=== PATIENT | male | born 1980 | race Caucasian/White ===

== ENCOUNTER → 2017-09-15 | Day surgery (SDC) | payer OTHER ==
[~2017-09-15] MED LIST: BENTYL10 MG/1 ML PO; FENTANYL CITRATE/PF 100MCG/2 ML INJ ONE; HYOSCYAMINE SULFATE 0.5 MG/ML AMP ONE; LIDOCAINE HCL 2% LOCAL INJ 5 ML SDV VIAL INJ ONE; MIDAZOLAM HCL 2 MG/2 ML VIAL ONE; PEPCID20 MG PO; PROPOFOL IV EMULSION 10 MG/ML 50 ML VIAL ONE
--- NOTE | 2017-09-15 13:04 | Operative Report ---
DATE OF PROCEDURE: September 15, 2017 PROCEDURES PERFORMED 1. Esophagogastroduodenoscopy with biopsies. 2. Colonoscopy with biopsies. INDICATIONS FOR PROCEDURE: History of heartburn and indigestion. INDICATIONS FOR COLONOSCOPY: Diarrhea. MEDICATION: Patient was done under MAC. Please see anesthesiologist's note. PROCEDURE: With the patient in the left lateral decubitus position, the flexible fiberoptic Olympus gastroscope was introduced into the esophagus under direct visualization without any difficulty. There were some erosions noted in the distal esophagus. A minute nodule was noted at the GE junction that was biopsied. The scope was then advanced with ease into the stomach traversing a small sliding hiatal hernia. Mucosa overlying the antrum and the body revealed some patchy erythema and low-grade to moderate edema, and biopsies were obtained and sent to stain for H. pylori. Pylorus appeared to be of normal contour and shape. It was intubated with ease, and the scope was advanced all the way to the 2nd portion of the duodenum. The scope was then withdrawn slowly, and biopsies were obtained from the proximal 2nd portion to rule out sprue. Mucosa overlying the duodenal bulb appeared to be within normal limits. The scope was then withdrawn back into the stomach and retroflexed. Mucosa overlying the fundus and the cardia appeared to be within normal limits. The scope was then straightened out. The stomach was decompressed. Scope was subsequently withdrawn. Patient tolerated the procedure well. IMPRESSION 1. Erosive esophagitis. 2. Minute nodule at gastroesophageal junction, biopsied. 3. Small sliding hiatal hernia. 4. Gastritis, biopsied. Biopsies sent to stain for H. pylori. 5. Rule out sprue. PLAN: Follow up histology. Initiate Protonix 40 mg 1 p.o. q.a.m. a.c. The patient was then turned around. After adequate lubrication of the anal canal, a flexible fiberoptic Olympus colonoscope was inserted into the rectum with ease and advanced all the way to the cecum. The mucosa overlying the cecum appeared to be within normal limits. The ileocecal valve was intubated, and the scope was advanced into the terminal ileum. The mucosa revealed some patchy erythema and moderate edema, and biopsies were obtained. The scope was then withdrawn back into the colon. It was then withdrawn slowly. Mucosa overlying the ascending and transverse appeared to be within normal limits. The mucosa overlying the left colon revealed some patchy areas of mild to moderate edema, and biopsies were obtained. The scope was then retroflexed into the distal rectum, and small internal hemorrhoids were noted, none of which was actively bleeding. The scope was then straightened out. The rectosigmoid area as well as the distal rectal area were decompressed. Scope was subsequently withdrawn after securing an adequate stool specimen that was sent for the appropriate stool studies. Patient tolerated the procedure well. IMPRESSION 1. Ileitis, biopsied. 2. Mild, patchy, left-sided colitis. 3. Internal hemorrhoids, none actively bleeding. PLAN: Follow up histology. Follow up stool studies. Initiate VSL #3 DS one p.o. daily and Bentyl 10 mg 1 p.o. t.i.d. Timing of followup colonoscopy pending pathology report. Job#: [id number]
[2017-09-15 13:12] LABS: WBC,FECAL (FECAL LACTOFERRIN) NEGATIVE (NEGATIVE)
[2017-09-16 13:46] LABS: C DIFFICILE TOXIN A&B AMP PROB NEGATIVE (NEGATIVE)
== END | disposition home or self-care (01) ==
LOC: OR 09:18
PROVIDERS: ATTEND Internal Medicine Gastroenterology
DX: K29.50 Unspecified chronic gastritis without bleeding (principal); K51.50 Left sided colitis without complications; K21.0 Gastro-esophageal reflux disease with esophagitis; K64.8 Other hemorrhoids; K22.10 Ulcer of esophagus without bleeding; K44.9 Diaphragmatic hernia without obstruction or gangrene; Z68.30 Body mass index [BMI] 30.0-30.9, adult
CPT/HCPCS: 43239; 45380; 83630; 83993; 87045; 87177; 87328; 87493; J1980; J2001; J2250

== ENCOUNTER 2019-10-17 15:30 | Inpatient (IN) | payer OTHER ==
[~2019-10-17] VITALS: Ht 182.9 cm; Wt 108.9 kg
[~2019-10-17 15:30] MED LIST changes: -FENTANYL CITRATE/PF 100MCG/2 ML INJ ONE; -HYOSCYAMINE SULFATE 0.5 MG/ML AMP ONE; -LIDOCAINE HCL 2% LOCAL INJ 5 ML SDV VIAL INJ ONE; -MIDAZOLAM HCL 2 MG/2 ML VIAL ONE; -PROPOFOL IV EMULSION 10 MG/ML 50 ML VIAL ONE
[2019-10-17] MEDS ORDERED: MORPHINE SULFATE INJ 4 MG/ML INJ 1ML IV STA (15:31)
[2019-10-17] MEDS ORDERED: ONDANSETRON HCL INJ 2MG/ML 2ML 2 MG/ML VIAL IV STA ×2 (15:31→17:47)
[2019-10-17] MEDS ORDERED: FAMOTIDINE 20 MG/2 ML VIAL IV STA (15:31)
[2019-10-17] MEDS ORDERED: SODIUM CHLORIDE 0.9% 1000ML 1,000 ML IV STA (15:31)
--- OUTSIDE RECORDS SUMMARY | 2019-10-17 15:33 | XMS REPORT ---
Author Author [facility] Address Unknown Phone Unavailable Care Team Providers Care [employer] Stillman Name Role Phone Unavailable Unavailable Payers Payer Name Policy Type Policy Number Effective Date Expiration Date Problems This patient has no known problems. Allergies, Adverse Reactions, Alerts Allergy Name Allergy Type Status Severity Reaction(s) Onset Date Inactive Date Treating Clinician Comments latex DA Active IN 2019-07-23 00:00:00 latex DA Active IN 2018-12-08 00:00:00 No Known Allergies DA Active U 2018-11-08 00:00:00 No Known Allergies DA Active U 2017-08-03 00:00:00 Medications This patient has no known medications. Results Test Description Test Time Test Comments Text Results Atomic Results Result Comments TROPONIN-I 2019-07-23 17:54:00 TROPONIN-I (test code=TROPI) <0.015 ng/mL 0-0.045 - CT ABD PELVIS [id number] 16:31:00 Name: HAL FRENCH [facility] : 1980 Age/S: 38 / M [address] [facility] Unit #: [id number] Loc: [place] [address] Phys: Michelle Zamora MD Acct: [id number] Dis Date: Status: REG ER PHONE #: [phone] Exam Date: 07/23/2019 1543 FAX #: [phone] Reason: LUQ PAIN, N/V EXAMS: CPT CODE: [id number] CT ABD PELVIS W/CONT [id number] EXAM: CT of the abdomen and pelvis with contrast; INFORMATION: Abdominal pain, nausea and vomiting; TECHNIQUE AND FINDINGS: CT dose reduction protocol; 5 mm cuts through the abdomen and pelvis during and after intravenous infusion of contrast material. Compared with a study from November 08, 2018 previously seen partial small bowel obstruction has resolved. Today small bowel loops and the colon and of normal caliber. However, again seen is circumferential wall thickening of a short segment of the terminal ileum, consistent with Crohn's disease. No evidence of abscess formation or other inflammatory changes of the adjacent mesenteric structures. Liver, biliary system, pancreas, spleen, adrenal glands and kidneys are unremarkable. No hydronephrosis. No pelvic mass lesions. Lung bases are clear. IMPRESSION: 1. Thick-walled segment of the terminal ileum consistent with Crohn's disease. 2. No evidence of abscess formation, perforation or bowel obstruction and no evidence of inflammatory changes of adjacent mesenteric structures. Location code: [facility] at 1631 Reported and signed by: Diego Dick M.D. CC: Lisandro Vernon III, MD; Michelle Zamora MD Technologist:Ramy Quevedo RT(R) CTDI: DLP: Trnscb Date/Time: 07/23/2019 (163) tBRADLEY Orig Print D/T: S: 07/23/2019 (9611) PAGE 1 Signed Report URINALYSIS [id number] 16:06:00* Test Item Value Reference Range Comments UA COLOR (test code=COLU) Light-Yellow YELLOW UA APPEARANCE (test code=APPU) CLEAR CLEAR UA GLUCOSE DIPSTICK (test code=DGLUU) NEGATIVE mg/dL NEGATIVE UA BILIRUBIN DIPSTICK (test code=BILU) NEGATIVE mg/dL NEGATIVE UA KETONE DIPSTICK (test code=KETU) NEGATIVE mg/dL NEGATIVE UA SPECIFIC GRAVITY (test code=SGU) 1.047 1.001-1.035 UA BLOOD DIPSTICK (test code=REJI) Negative mg/dL NEGATIVE UA PH DIPSTICK (test code=DORETHA) 7.0 5.0-8.0 UA PROTEIN DIPSTICK (test code=PROU) NEGATIVE mg/dL NEGATIVE UA UROBILINIOGEN DIPSTICK (test code=URO) Normal mg/dL NEGATIVE UA NITRITE DIPSTICK (test code=EMERSON) NEGATIVE NEGATIVE UA LEUKOCYTE ESTERASE W REFLEX (test code=LEUUR) NEGATIVE Cesar/uL NEGATIVE UA WBC (test code=WBCU) 0-5 per HPF 0-5 UA RBC (test code=RBCU) 0-2 #/HPF 0-5 UA EPITHELIAL CELLS (test code=EPIU) None seen per HPF FEW UA BACTERIA (test code=BACU) NONE SEEN #/HPF NONE Urine Source? Clean CatchBASIC METABOLIC [id number] 14:40:00* Test Item Value Reference Range Comments SODIUM (test code=NA) 139 mmol/L 136-145 POTASSIUM (test code=K) 3.8 mmol/L 3.5-5.1 CHLORIDE (test code=CL) 104.0 mmol/L 98-107 CARBON DIOXIDE (test code=CO2) 30.0 mmol/L 21-32 ANION GAP (test code=GAP) 8.8 10-20 GLUCOSE (test code=GLU) 89 mg/dL 74-106 BLOOD UREA NITROGEN (test code=BUN) 14 mg/dL 7-18 GLOMERULAR FILTRATION RATE (test code=GFR) > 60 mL/min >=60 Estimated GFR by using Modified MDRD formula.Chronic kidney disease is defined as either kidney damageor GFR <60 mL/min/1.73 m2 for >3 months. CREATININE (test code=CREAT) 1.00 mg/dL 0.7-1.3 BUN/CREATININE RATIO (test code=BUN/CREA) 14.0 10-20 CALCIUM (test code=CA) 9.4 mg/dL 8.5-10.1 HEPATIC FUNCTION [id number] 14:40:00* Test Item Value Reference Range Comments TOTAL PROTEIN (test code=PROT) 8.0 gram/dL 6.4-8.2 ALBUMIN (test code=ALB) 4.2 g/dL 3.4-5.0 GLOBULIN (test code=GLOB) 3.8 gram/dL 2.7-4.2 ALBUMIN/GLOBULIN RATIO (test code=A/G) 1.1 0.75-1.50 BILIRUBIN TOTAL (test code=BILT) 0.40 mg/dL 0.0-1.0 BILIRUBIN DIRECT (test code=BILD) 0.11 mg/dL 0.0-0.20 SGOT/AST (test code=AST) 28 IUnit/L 15-37 SGPT/ALT (test code=ALT) 39 IUnit/L 12-78 ALKALINE PHOSPHATASE TOTAL (test code=ALKP) 60 IUnit/L 45-117 Note change in reference range due to change in reagent. [id number] 14:40:00* Test Item Value Reference Range Comments LIPASE (test code=LIP) 97 U/L 73.0-393.0 BASIC METABOLIC [id number] 14:36:00* Test Item Value Reference Range Comments SODIUM (test code=NA) 139 mmol/L 136-145 POTASSIUM (test code=K) 3.8 mmol/L 3.5-5.1 CHLORIDE (test code=CL) 104.0 mmol/L 98-107 CARBON DIOXIDE (test code=CO2) mmol/L 21-32 ANION GAP (test code=GAP) 10-20 GLUCOSE (test code=GLU) mg/dL 74-106 BLOOD UREA NITROGEN (test code=BUN) mg/dL 7-18 GLOMERULAR FILTRATION RATE (test code=GFR) mL/min >=60 CREATININE (test code=CREAT) mg/dL 0.7-1.3 BUN/CREATININE RATIO (test code=BUN/CREA) 10-20 CALCIUM (test code=CA) mg/dL 8.5-10.1 HEPATIC FUNCTION [id number] 14:36:00* Test Item Value Reference Range Comments TOTAL PROTEIN (test code=PROT) gram/dL 6.4-8.2 ALBUMIN (test code=ALB) g/dL 3.4-5.0 GLOBULIN (test code=GLOB) gram/dL 2.7-4.2 ALBUMIN/GLOBULIN RATIO (test code=A/G) 0.75-1.50 BILIRUBIN TOTAL (test code=BILT) mg/dL 0.0-1.0 BILIRUBIN DIRECT (test code=BILD) mg/dL 0.0-0.20 SGOT/AST (test code=AST) IUnit/L 15-37 SGPT/ALT (test code=ALT) IUnit/L 12-78 ALKALINE PHOSPHATASE TOTAL (test code=ALKP) IUnit/L 45-117 [id number] 14:36:00* Test Item Value Reference Range Comments LIPASE (test code=LIP) U/L 73.0-393.0 CBC W/O [id number] 14:13:00* Test Item Value Reference Range Comments WHITE BLOOD CELL (test code=WBC) 7.2 K/mm3 4.5-12.5 RED BLOOD CELL (test code=RBC) 5.05 mill/mm3 4.0-5.8 HEMOGLOBIN (test code=HGB) 14.7 gram/dL 13.0-17.5 HEMATOCRIT (test code=HCT) 44.2 % 42.0-52.0 MEAN CELL VOLUME (test code=MCV) 87.5 fL 80-98 MEAN CELL HGB (test code=MCH) 29.1 picogram 27.0-33.0 MEAN CELL HGB CONCETRATION (test code=MCHC) 33.3 gram/dL 33.0-36.0 RED CELL DISTRIBUTION WIDTH (test code=RDW) 13.7 % 11.6-16.2 PLATELET COUNT (test code=PLT) 329 K/mm3 150-450 MEAN PLATELET VOLUME (test code=MPV) 9.8 fL 6.7-11.0 SURGICAL [id number] 08:58:00 RUN DATE: 12/16/18 [facility] *LIVE* PAGE 1 RUN TIME: 0858 Specimen Inqui ry RUN USER: INTERFACE PATIENT: HAL FRENCH ACCT #: [id number] LOC: PURNIMA Lewis #: [id number] AGE/SX: 37/M ROOM: [facility] RE12/11/18REG DR: Kathie Rust MD : 80 BED: 1 DIS: 12/12/18 STATUS: DIS Talia TLOC: SPEC #: [id number] RECD: 12/14/18 STATUS: [place] REQ #: [id number] YELENA: 12/14/[address]: Kathie Rust MD ENTERED: 12/16/18 SP TYPE: SURG SPEC OTHR DR: Lisandro Vernon III, MD ORDERED: GM LEVEL 4 CODES: [id number] - NOSE, NOS [id number] - TO NSIL, NOS COPIES TO: [place] [address] [place] [address] [place] [address] [facility] [address] [place], [place] [id number] PROCEDURES: GM LEVEL 4 (Incomplete) TISSUES: 1. NOSE, NOS - Nasal cavity, septum and turbinates 2. TONSIL, NOS - Tonsil, left 3. TONSIL, NOS - Tonsil, right FINAL DIAGNOSIS Tonsil, lef: Chronic tonsillitis. Tonsil, right: Chronic tonsillitis. Nasal cavity, septum and turbinates: Nasal septum identified; mild inflamm ation. GROSS AND MICROSCOPIC GROSS DESCRIPTION: Received in formalin and labeled tonsils are bilateral pharyngeal tonsils. The left tonsil measures 4.1 x 2.5 x 1.3 cm (A). The right tonsil measures 3.3 x 1.5 x 1.4 cm (B). O n cross sections hyperplastic lymphoid tissue is seen. Sections a re submitted for microscopic examination as indicated. Also received and labeled nasal contents are segments of pink-terrell tissue and hemorrhagic coagulum that measure together up to 3 cm. Some cartilage is also present. Sections submitted (C). CONTINUED ON NEXT PAGE ----- -------RUN DATE: 12/16/18 [facility] *LIVE* PAGE 2 RUN TIME: 857 Specimen Inquiry RUN USER: INTERFACE SPEC #: [id number] PATIENT: HAL FRENCH #[id number] (Continued) GROSS AND MICROSCOPIC (Continued) MICROSCOPIC EXAMINATION: Sections of the tonsils reveal shireen nges of lymphoid hyperplasia. Prominent germinal centers are present in lympho id follicles. Sections of the "Nasal cavity, septum and turbinates" reveal maldonado ges of cartilage and bone with mild inflammation. POST-OP DIAGNOSIS None given PRE-OP DIAGNOSIS Irma ated nasal setpum, turbinate hypertrophy, chronic tonsillitis Signed SIGNATURE ON FILE Cici Friedman MD 12/16/18 0858 --- --------- EN D OF REPORT [id number] 21:12:00* Test Item Value Reference Range Comments GLUBED (test code=GLUBED) 143 MG/DL 70-110 Performed by certified chlorination operator at [facility] PROTHROMBIN [id number] 17:28:00* Test Item Value Reference Range Comments PROTHROMBIN TIME PATIENT (test code=PTP) 11.7 SECONDS 9.3-12.9 INTERNATIONAL NORMAL RATIO (test code=INR) 1.0 0.8-1.2 TARGET INR BY INDICATION Indication INR1. Prophylaxis of venous thrombosis 2.0 - 3.0 (orthopedic surgery), Prophylaxis of venous thrombosis (other than high-risk surgery), Treatment of Deep Vein Thrombosis/Pulmonary Embolism, Prevention of systemic embolism - Tissue heart valves, Acute Myocardial Infarction (to prevent systemic embolism), Valvular heart disease, Atrial Fibrillation, Bileaflet mechanical valve in aortic position.2. Mechanical prosthetic valves (high risk), 2.5 - 3.5 Presence of Lupus Anticoagulant or Antiphospholipid Antibodies, Prevention of systemic embolism - Acute Myocardial Infarction (to prevent recurrent infarct). THROMBOPLASTIN TIME [id number] 17:28:00* Test Item Value Reference Range Comments THROMBOPLASTIN TIME PARTIAL (test code=PTT) 31.8 Seconds 25.0-39.5 Therapeutic Range: 50.4 - 88.3 Seconds Effective 10/20/2018 - XR ABDOMEN AP 1 [id number] 13:43:00 FAX: Zi Oneill MD [place]: B St: ADM FAX: Liza Holloway FAX: Lisandro Rendon III [phone] Name: HAL FRENCH [facility] : 1980 Age/S: 37/M [address] Unit #: [id number] Loc: V.[address] [place] [address] Phys: Liza Holloway NP Acct: [id number] Dis Date: Status: ADM IN ONE #: [phone] Exam Date: 11/10/2018 1020 FAX #: [phone] Reason: SBO EXAMS: CPT CODE: [id number] XR ABDOMEN AP 1 V 70692 HISTORY: Small bowel obstruction. COMPARISON: November 09, 2018. Large a mount of stool throughout the colon. The small bowel is decreased in diste ntion suggesting resolving obstruction. No pathologic calcificatio ns. IMPRESSION: Decreasing small bowel distent ion with air and stool throughout the colon suggesting resolving small b owel obstruction. Correlate with clinical findings as well. at 0860 Reported and signed by: Blayne Moon M.D. CC: Zi Paredes MD; Liza Holloway NP; Lisandro Vernon III, MD Technologist: Carolina Alfred(Joselyn) Trnscrd Date/Time/By: 11/10/2018 (13 43) : By: Rose [email or web address] Orig Print D/T: S: 11/10/2018 (1029) PAGE 1 Signed Report - XR ABDOMEN AP 1 [id number] 11:11:00 FAX: Zi Oneill MD [place]: B St: ADM FAX: Liza Holloway FAX: Lisandro Rendon III [phone] Name: HAL FRENCH [facility] : 1980 Age/S: 37/M [address] Unit #: [id number] Loc: V.[address] [place] [address] Phys: Liza Holloway NP Acct: [id number] Dis Date: Status: ADM IN ONE #: [phone] Exam Date: 11/09/2018 1107 FAX #: [phone] Reason: SBO EXAMS: CPT CODE: [id number] XR ABDOMEN AP 1 V 16957 HISTORY: Small bowel obstruction. COMPARISON: CT scan from previous day. Mild nonspecific distention of the small bowel loops in the midabdo men. Colonic gas is noted. These findings may suggest partial or i ncomplete obstruction. IMPRESSION: Mild disten tion of small bowel loops suggesting gas noted throughout the large shea l may suggest partial or incomplete obstruction. No pathologic calcifica tions. at 1 111 Reported and signed by: Blayne Moon M.D. CC: Zi Nickerson MD; Liza Holloway NP; Lisandro Vernon III, MD Techno logist: Alexa Montgomery RT(R); ENEDINA WU RT(R) Trnscrd Date/Time /By: 11/09/2018 (1111) : By: [email or web address] Orig Print D/T: S: 11/09/2018 ( 1114) PAGE 1 Signed Report URINALYSIS [id number] 22:57:00* Test Item Value Reference Range Comments UA COLOR (test code=COLU) COLORLESS YELLOW UA APPEARANCE (test code=APPU) CLEAR CLEAR UA GLUCOSE DIPSTICK (test code=DGLUU) NEGATIVE mg/dL NEGATIVE UA BILIRUBIN DIPSTICK (test code=BILU) NEGATIVE mg/dL NEGATIVE UA KETONE DIPSTICK (test code=KETU) NEGATIVE mg/dL NEGATIVE UA SPECIFIC GRAVITY (test code=SGU) >1.050 1.001-1.035 UA BLOOD DIPSTICK (test code=REJI) Negative mg/dL NEGATIVE UA PH DIPSTICK (test code=DORETHA) 5.5 5.0-8.0 UA PROTEIN DIPSTICK (test code=PROU) NEGATIVE mg/dL NEGATIVE UA UROBILINIOGEN DIPSTICK (test code=URO) Normal mg/dL NEGATIVE UA NITRITE DIPSTICK (test code=EMERSON) NEGATIVE NEGATIVE UA LEUKOCYTE ESTERASE W REFLEX (test code=LEUUR) NEGATIVE Cesar/uL NEGATIVE UA WBC (test code=WBCU) 0-5 per HPF 0-5 UA RBC (test code=RBCU) 0-2 #/HPF 0-5 UA EPITHELIAL CELLS (test code=EPIU) FEW per HPF FEW UA BACTERIA (test code=BACU) FEW #/HPF NONE UA MUCUS (test code=MUCU) FEW #/LPF FEW Urine Source? Clean Catch- CT ABD PELVIS W WO [id number] 22:24:00 Name: HAL FRENCH [facility] : 1980 Age/S: 37 / M [address] [facility] Unit #: [id number] Loc: [place] [address] Phys: Jami Coello [employer] Acct: [id number] Di s Date: Status: REG ER PHONE #: Exam Date: 11/08/20182145 FAX #: Reason: LEFT UQ PAIN WITH LFLANK PAIN EXAMS: CPT CODE: [id number] CT ABD PELVIS W WO CONT 78130 EXAM: CT of the abdomen a nd pelvis with and without contrast; INFORMATION: Left upper quadr ant pain and left flank pain; TECHNIQUE AND FINDINGS: CT dos e reduction protocol; 5 mm cuts were obtained through the abdomen and pelv is before, during and after intravenous infusion of contrast material. The noncontrast scans show no evidence of renal or ureteral calcificati ons; no calcified gallstones. The kidneys of normal size and shape. They show normal parenchymal enhancement; no hydronephrosis. Liver, splee n and pancreas are also normal size and shape and without focal lesions. Jejunal loops are nondilated. The colon is also nondilated. There a ppears to be a short segment of the terminal ileum which shows increased c ircumferential wall thickening. Upstream there are not dilated ileal loop s with small bowel fecal sign distally. A normal appendix is seen. N o pelvic mass lesions. No evidence of abscess formation or perforation. Lung bases are clear. IMPRESSION: 1. FINDINGS sugge st partial distal small bowel obstruction. FINDINGS are suspicious for Crohn's disease involving a short segment of the terminal ileum. 2. No other significant abnormality; no evidence of renal or ureteral stones or of obstructive uropathy. at 2224 Reported and signed by: Diego Dick M.D. CC: Andres Coello NP Technologist:RT Nadeen(R)(CT) CTDI: DLP: Trnscb Date/Time: 11/08/2018 (2223) [email or web address] Orig Print D/T: S: 11/08/2018 (2227) CTDI: DLP: PAGE 1 Signed Report PROCALCITONIN (PCT)2018-11-08 21:24:00* Test Item Value Reference Range Comments PROCALCITONIN (PCT) (test code=PROCAL) < 0.05 ng/ml Concentration Interpretation (ng/mL) <0.51 Sepsis is not likely. Local bacterial infection is possible. (LOW RISK for progression to Sepsis) 0.51 - 2.00 Sepsis is possible, but other conditions are known to elevate PCT as well. (MODERATE RISK for progression to Sepsis) > 2.00 Sepsis is likely, unless other causes are known. (HIGH RISK for progression to Severe Sepsis or Septic Shock) 10.00 High likelihood of Severe Sepsis or Septic or higher Shock. *Increased PCT levels may not always be related to systemic bacterial infection.*Low PCT levels do not automatically exclude the presence of bacterial infection.*All results should be interpreted taking into account the patients history. LACTIC [id number] 21:24:00* Test Item Value Reference Range Comments LACTIC ACID (test code=LACT) 1.1 mmol/L 0.4-1.9 BASIC METABOLIC [id number] 21:15:00* Test Item Value Reference Range Comments SODIUM (test code=NA) 137 mmol/L 136-145 POTASSIUM (test code=K) 4.0 mmol/L 3.5-5.1 CHLORIDE (test code=CL) 103.0 mmol/L 98-107 CARBON DIOXIDE (test code=CO2) 26.0 mmol/L 21-32 ANION GAP (test code=GAP) 12.0 10-20 GLUCOSE (test code=GLU) 102 mg/dL 74-106 BLOOD UREA NITROGEN (test code=BUN) 11 mg/dL 7-18 GLOMERULAR FILTRATION RATE (test code=GFR) > 60 mL/min >=60 Estimated GFR by using Modified MDRD formula.Chronic kidney disease is defined as either kidney damageor GFR <60 mL/min/1.73 m2 for >3 months. CREATININE (test code=CREAT) 1.10 mg/dL 0.7-1.3 BUN/CREATININE RATIO (test code=BUN/CREA) 10.0 10-20 CALCIUM (test code=CA) 10.0 mg/dL 8.5-10.1 HEPATIC FUNCTION [id number] 21:15:00* Test Item Value Reference Range Comments TOTAL PROTEIN (test code=PROT) 8.5 gram/dL 6.4-8.2 ALBUMIN (test code=ALB) 4.5 g/dL 3.4-5.0 GLOBULIN (test code=GLOB) 4.0 gram/dL 2.7-4.2 ALBUMIN/GLOBULIN RATIO (test code=A/G) 1.1 0.75-1.50 BILIRUBIN TOTAL (test code=BILT) 0.50 mg/dL 0.0-1.0 BILIRUBIN DIRECT (test code=BILD) 0.12 mg/dL 0.0-0.20 SGOT/AST (test code=AST) 27 IUnit/L 15-37 SGPT/ALT (test code=ALT) 45 IUnit/L 12-78 ALKALINE PHOSPHATASE TOTAL (test code=ALKP) 71 IUnit/L 45-117 Note change in reference range due to change in reagent. [id number] 21:15:00* Test Item Value Reference Range Comments LIPASE (test code=LIP) 132 U/L 73.0-393.0 BASIC METABOLIC [id number] 20:34:00* Test Item Value Reference Range Comments SODIUM (test code=NA) 137 mmol/L 136-145 POTASSIUM (test code=K) 4.0 mmol/L 3.5-5.1 CHLORIDE (test code=CL) 103.0 mmol/L 98-107 CARBON DIOXIDE (test code=CO2) mmol/L 21-32 ANION GAP (test code=GAP) 10-20 GLUCOSE (test code=GLU) mg/dL 74-106 BLOOD UREA NITROGEN (test code=BUN) mg/dL 7-18 GLOMERULAR FILTRATION RATE (test code=GFR) mL/min >=60 CREATININE (test code=CREAT) mg/dL 0.7-1.3 BUN/CREATININE RATIO (test code=BUN/CREA) 10-20 CALCIUM (test code=CA) mg/dL 8.5-10.1 HEPATIC FUNCTION [id number] 20:34:00* Test Item Value Reference Range Comments TOTAL PROTEIN (test code=PROT) gram/dL 6.4-8.2 ALBUMIN (test code=ALB) g/dL 3.4-5.0 GLOBULIN (test code=GLOB) gram/dL 2.7-4.2 ALBUMIN/GLOBULIN RATIO (test code=A/G) 0.75-1.50 BILIRUBIN TOTAL (test code=BILT) mg/dL 0.0-1.0 BILIRUBIN DIRECT (test code=BILD) mg/dL 0.0-0.20 SGOT/AST (test code=AST) IUnit/L 15-37 SGPT/ALT (test code=ALT) IUnit/L 12-78 ALKALINE PHOSPHATASE TOTAL (test code=ALKP) IUnit/L 45-117 [id number] 20:34:00* Test Item Value Reference Range Comments LIPASE (test code=LIP) U/L 73.0-393.0 CBC W/O [id number] 20:14:00* Test Item Value Reference Range Comments WHITE BLOOD CELL (test code=WBC) 13.8 K/mm3 4.5-12.5 RED BLOOD CELL (test code=RBC) 5.42 mill/mm3 4.0-5.8 HEMOGLOBIN (test code=HGB) 15.6 gram/dL 13.0-17.5 HEMATOCRIT (test code=HCT) 47.1 % 42.0-52.0 MEAN CELL VOLUME (test code=MCV) 86.9 fL 80-98 MEAN CELL HGB (test code=MCH) 28.8 picogram 27.0-33.0 MEAN CELL HGB CONCETRATION (test code=MCHC) 33.1 gram/dL 33.0-36.0 RED CELL DISTRIBUTION WIDTH (test code=RDW) 13.3 % 11.6-16.2 PLATELET COUNT (test code=PLT) 363 K/mm3 150-450 MEAN PLATELET VOLUME (test code=MPV) 9.9 fL 6.7-11.0
[2019-10-17 15:51] LABS: BASOPHILS % 0.2 % (0.0-1.0); EOSINOPHILS % 0.1 % (0.0-6.0); HEMATOCRIT 49.5 % (38.2-49.6); HEMOGLOBIN 16.7 g/dL (14.0-18.0); LYMPHOCYTES # (AUTO) 1.8 (1.0-3.2); LYMPHOCYTES % 11.7 % (18.0-39.1); MEAN CORPUSCULAR HEMOGLOBIN 29.4 pg (28-32); MEAN CORPUSCULAR HGB CONC 33.7 g/dL (31-35); MEAN CORPUSCULAR VOLUME 87.1 fL (81-99); MONOCYTES # (AUTO) 0.8 (0.2-0.8); NEUTROPHILS # (AUTO) 12.5 (2.1-6.9); NEUTROPHILS % 82.7 % (38.7-80.0); PLATELET COUNT 394 x10e3/uL (140-360); RED BLOOD COUNT 5.68 x10e6/uL (4.3-5.7); RED CELL DISTRIBUTION WIDTH 13.5 % (11.7-14.4)
[2019-10-17 16:13] LABS: ALANINE AMINOTRANSFERASE 31 IU/L (0-55); ALBUMIN 4.9 g/dL (3.5-5.0); ALBUMIN/GLOBULIN RATIO 1.4 (0.8-2.0); ALKALINE PHOSPHATASE 65 IU/L (40-150); AMYLASE 47 U/L (25-125); ANION GAP 14.2 mmol/L (8-16); BLOOD UREA NITROGEN 14 mg/dL (7-26); BUN/CREATININE RATIO 12 (6-25); CALCIUM 10.2 mg/dL (8.4-10.2); CARBON DIOXIDE 26 mmol/L (22-29); CHLORIDE 103 mmol/L (98-107); CREATININE, SERUM 1.14 mg/dL (0.72-1.25); EST GLOMERULAR FILTRATION RATE > 60 ML/MIN (60-); GLUCOSE 124 mg/dL (74-118); LIPASE 24 U/L (8-78); MAGNESIUM 2.1 MG/DL (1.3-2.1); POTASSIUM 4.2 mmol/L (3.5-5.1); SODIUM 139 mmol/L (136-145)
[2019-10-17] MEDS ORDERED: DIATRIZOATE MEGL/DIATRIZOA SOD 30 ML BTL PO ONE (16:17)
[2019-10-17 16:36] LABS: CLARITY,URINE CLEAR (CLEAR); COLOR,URINE YELLOW (YELLOW); LEUKOCYTE ESTERASE ,URINE NEGATIVE (NEGATIVE); NITRITE,URINE NEGATIVE (NEGATIVE)
[2019-10-17 16:38] LABS: BILIRUBIN,URINE SMALL (NEGATIVE); KETONES,URINE TRACE (NEGATIVE); PROTEIN,URINE DIPSTICK 1+ (NEGATIVE); URINE UROBILINOGEN 0.2 mg/dL (0.2 - 1)
[2019-10-17 16:45] LABS: BACTERIA,URINE RARE /HPF; EPITHELIAL CELLS,URINE RARE /LPF; MUCUS,URINE MODERATE (RARE); RBC,URINE 0-5 /HPF (0-5); WBC,URINE (MAN) 0-5 /HPF (0-5)
--- NOTE | 2019-10-17 17:49 | Diagnostic Imaging Report ---
EXAM: CT Abdomen and Pelvis WITH contrast INDICATION: Abdominal Pain, query diverticulitis. COMPARISON: None. TECHNIQUE: Abdomen and pelvis were scanned utilizing a multidetector helical scanner from the lung base to the pubic symphysis after administration of IV contrast. Coronal and sagittal reformations were obtained. Routine protocol was performed. Scan was performed during portal venous phase. IV CONTRAST: 100 cc of Isovue-370. ORAL CONTRAST: Gastrografin COMPLICATIONS: None RADIATION DOSE: Total DLP: 715.5 mGy*cm Estimated effective dose: (DLP x 0.015 x size factor) mSv CTDIvol has been reviewed. It is below the limits set by the Radiation Protocol Committee (RPC). FINDINGS: LINES and TUBES: None. LOWER THORAX: Scattered coronary atherosclerosis. HEPATOBILIARY: Diffuse mild hepatic steatosis. No evidence of focal lesion. No biliary ductal dilation. GALLBLADDER: No radio-opaque stones or sludge. No wall thickening. SPLEEN: No splenomegaly. PANCREAS: No focal masses or ductal dilatation. ADRENALS: No adrenal nodules KIDNEYS/URETERS: Kidneys enhance symmetrically. No evidence of hydronephrosis, solid mass, or stone. GI TRACT: There are distended mid and distal small bowel loops, which measure up to 3.4 cm. A mild transition point is noted in the terminal ileum, as seen on series 2, image 50. There is air and stool within a relatively decompressed colon. Fecalization of distal ileal loops. No evidence of pneumatosis. Appendix is normal. PELVIC ORGANS/BLADDER: Unremarkable. LYMPH NODES: No lymphadenopathy. VESSELS: Engorgement of the mesenteric vessels, predominantly in the right lower quadrant. PERITONEUM / RETROPERITONEUM: Trace free fluid in the right lower quadrant. No free air. BONES AND SOFT TISSUES: Unremarkable. CONCLUSION: Partial small bowel obstruction with a transition point in the terminal ileum. No evidence of pneumatosis or free air. Diffuse mild hepatic steatosis. Scattered coronary atherosclerosis. Signed by: Dr. Alfredo Rajput MD on 10/17/2019 5:45 PM
[2019-10-17] MEDS ORDERED: MORPHINE SULFATE INJ 4 MG/ML INJ 1ML IV ONE (18:00)
[2019-10-17] MEDS ORDERED: SODIUM CHLORIDE 0.9% 50ML 50 ML ONE (18:02)
[2019-10-17] MEDS ORDERED: IOPAMIDOL 370 MG/ML 200 ML INFUS..BTL INJ ONE (18:02)
[2019-10-17] MEDS ORDERED: BENZOCAINE 20% SPR 60 ML CAN MT ONE (18:15)
--- NOTE | 2019-10-17 18:22 | NUR ---
Rocio LAM SPOKE WITH DR. HINOJOSA. NO NGT PLACEMENT AT THIS TIME. PATIENT WILL BE NPO. HE WILL BE HYDRATED AND GIVEN ANTIBIOTICS. HE IS AT BEDSIDE RE EVALUATING PATIENT AND UPDATING HIM ON PLAN OF CARE
[2019-10-17] MEDS ORDERED: HYDRALAZINE HCL 20 MG/ML VIAL IV PRN (19:00)
[2019-10-17] MEDS: CEFEPIME 1GM/NS 0.9% 50 ML 100 ML IV SCH (19:15)
[2019-10-17] MEDS: SODIUM CHLORIDE 0.9% 1000ML 1,000 ML IV SCH (19:15)
--- NOTE | 2019-10-17 20:00 | NUR ---
RECEIVED REPORT FROM SHARMAIEN GONZALEZ NURSE. PATIENT ARRIVED TO THE UNIT VIA WHEELCHAIR WITH HIS BELONGINGS. PATIENT IS COMPLAINING OF PAIN AND IN DISTRESS FROM THE PAIN. HE SAID HE "NEEDS A STRONG PAIN MEDICATION LIKE DILAUDID OR TORADOL" TO HELP RELIEVE THE PAIN AND HELP HIM SLEEP. Addendum: 10/17/19 at 2330 by Candace Serrano RN CALL LIGHT WITHIN REACH. PATIENT AMBULATES AND A&OX3.
[2019-10-17 20:10] VITALS: BP 116/74
[2019-10-17] MEDS: ONDANSETRON HCL INJ 2MG/ML 2ML 2 MG/ML VIAL IV PRN (20:10)
[2019-10-17] MEDS: MORPHINE SULFATE 2 MG/ML SYR 1ML IV PRN (20:10)
[2019-10-17] MEDS ORDERED: MELATONIN 3 MG TAB PO PRN (21:00)
[2019-10-17] MEDS ORDERED: PANTOPRAZOLE SO40 MG PO (21:12)
[2019-10-17] MEDS ORDERED: MELATONIN3 MG PO (21:12)
[2019-10-17] MEDS ORDERED: DICYCLOMINE HCL20 MG PO (21:12)
--- NOTE | 2019-10-17 21:14 | NUR ---
CALLED DR. HINOJOSA OFFICE AND TALKED TO BALBIR PETERS ABOUT PATIENT WANTING SOMETHING STRONGER THAN 4 MG OF IV MORPHINE AND SOMETHING TO HELP HIM SLEEP. PATIENT SAID HE TAKES 1 MG MELATONIN NEEDED. FRAN SAID BECAUSE THE PATIENT IS HERE FOR SBO TO GIVE HIM ONLY THE MORPHINE AND TO GIVE 3 MG OF MELATONIN.
[2019-10-18] VITALS (7 sets, daily range): BP systolic 95–104; BP diastolic 54–65
[2019-10-18] MEDS: MORPHINE SULFATE 2 MG/ML SYR 1ML IV PRN ×5 (00:23→18:02)
[2019-10-18] MEDS: ONDANSETRON HCL INJ 2MG/ML 2ML 2 MG/ML VIAL IV PRN ×5 (00:23→18:02)
[2019-10-18] MEDS ORDERED: PNEUMOCOCCAL VACCINE POLYVALENT 23 MCG/0.5 ML VIAL IM SCH (02:38)
[2019-10-18] MEDS: SODIUM CHLORIDE 0.9% 1000ML 1,000 ML IV SCH ×2 (05:06→14:09)
[2019-10-18 05:50] LABS: BASOPHILS % 0.2 % (0.0-1.0); EOSINOPHILS # (AUTO) 0.1 (0.0-0.4); EOSINOPHILS % 1.4 % (0.0-6.0); HEMATOCRIT 40.2 % (38.2-49.6); HEMOGLOBIN 13.4 g/dL (14.0-18.0); LYMPHOCYTES # (AUTO) 3.3 (1.0-3.2); MEAN CORPUSCULAR HEMOGLOBIN 29.8 pg (28-32); MEAN CORPUSCULAR HGB CONC 33.3 g/dL (31-35); MEAN CORPUSCULAR VOLUME 89.3 fL (81-99); MONOCYTES # (AUTO) 0.8 (0.2-0.8); MONOCYTES % 8.3 % (4.4-11.3); NEUTROPHILS % 53.9 % (38.7-80.0); PLATELET COUNT 301 x10e3/uL (140-360); RED CELL DISTRIBUTION WIDTH 13.7 % (11.7-14.4)
[2019-10-18] MEDS: CEFEPIME 1GM/NS 0.9% 50 ML 100 ML IV SCH (06:12)
[2019-10-18 06:17] LABS: ANION GAP 11.3 mmol/L (8-16); BLOOD UREA NITROGEN 13 mg/dL (7-26); BUN/CREATININE RATIO 12 (6-25); CALCIUM 8.6 mg/dL (8.4-10.2); CARBON DIOXIDE 30 mmol/L (22-29); CHLORIDE 105 mmol/L (98-107); CREATININE, SERUM 1.06 mg/dL (0.72-1.25); EST GLOMERULAR FILTRATION RATE > 60 ML/MIN (60-); GLUCOSE 96 mg/dL (74-118); POTASSIUM 4.3 mmol/L (3.5-5.1); SODIUM 142 mmol/L (136-145)
--- NOTE | 2019-10-18 07:00 | NUR ---
Received bedside shift report from off going nurse. Patient in stable condition, no s/s of distress noted. No complaints of pain. Bed in lowest position and locked. call light within reach.
--- NOTE | 2019-10-18 07:06 | Diagnostic Imaging Report ---
EXAM: Abdomen 4 radiographs INDICATION: ^F/U SBO ^[id number] ^[id number] COMPARISON: CT dated 10/17/2019 FINDINGS: Nonobstructive bowel gas pattern. Paucity of gas within small bowel. No signs of pneumoperitoneum. Contrast is seen within colon. There appears to be a filling defect or around shadowing in the expected area of ileocecal valve, seen on all images. Clear lung bases. No acute osseous abnormality. IMPRESSION: 1. Nonobstructive bowel gas pattern. 2. Filling defect/shadowing seen in the expected location of ileocecal valve, raising the possibility of underlying mass and the etiology of previously seen small bowel obstruction. Recommend further evaluation with endoscopic examination. Signed by: Dr. Avery Álvarez MD on 10/18/2019 7:03 AM
--- NOTE | 2019-10-18 07:27 | NUR ---
GAVE BEDSIDE SHIFT REPORT TO ONCOMING NURSE. CALL LIGHT WITHIN REACH. PATIENT IN BED.
[2019-10-18] MEDS ORDERED: FAMOTIDINE 20 MG/2 ML VIAL IV SCH (09:00)
[2019-10-18] MEDS ORDERED: TYLENOL WITH C1 EACH PO (11:36)
[2019-10-18] MEDS ORDERED: ACETAMINOPHEN/CODEINE 300MG - 30MG TAB PO PRN (11:45)
[2019-10-18] MEDS ORDERED: PANTOPRAZOLE 40 MG 10ML VIAL IV SCH (12:00)
[2019-10-18] MEDS ORDERED: CALCIUM CARBONATE 500 MG CHEWABLE TABS PO PRN (15:45)
[2019-10-18] MEDS ORDERED: CEFEPIME 1GM/NS 0.9% 50 ML 50 ML IV SCH (18:00)
--- NOTE | 2019-10-18 19:00 | NUR ---
Bedside shift report given to oncoming nurse. patient in stable condition, no s/s of distress. No complaints of pain. Bed in lowest position and locked. Call light within reach. All personal items within reach.
--- NOTE | 2019-10-18 19:05 | Diagnostic Imaging Report ---
EXAM: Abdomen radiographs 2 views INDICATION: Small bowel obstruction ^FOLLOW UP ^[id number] ^[id number] COMPARISON: 10/18/2019. CT dated 10/17/2019 FINDINGS: Nonobstructive bowel gas pattern. Paucity of gas within small bowel. No signs of pneumoperitoneum. Contrast is seen within colon. The contrast material has progressed to the distal colon when compared with the prior exam. The previously seen apparent filling defect in the expected area of ileocecal valve is not seen on today's exam. Clear lung bases. No acute osseous abnormality. IMPRESSION: 1. Nonobstructive bowel gas pattern. The previously seen contrast material in the colon has progressed to the distal colon. 2. Previously seen filling defect/shadowing in the expected location of ileocecal bowel not seen on today's examination. Signed by: Dr. Miguel Pabon M.D. on 10/18/2019 7:02 PM
--- NOTE | 2019-10-19 18:46 | Discharge Summary ---
ADMISSION DIAGNOSES: 1. Small bowel obstruction. 2. Obesity with a BMI of 32.5. 3. Insomnia. 4. Gastroesophageal reflux disease. DISCHARGE DIAGNOSES: 1. Small bowel obstruction. 2. Obesity with a BMI of 32.5. 3. Insomnia. 4. Gastroesophageal reflux disease. HISTORY: 1. Gastroesophageal reflux disease. 2. Insomnia. SURGICAL HISTORY: None. FAMILY HISTORY: Extensive history of GI issues. SOCIAL HISTORY: Occasional alcohol and tobacco use. HOSPITAL COURSE: A 38-year-old male admits with complaints of left upper quadrant abdominal pain, that began Friday. The pain started dull and became sharp, by Friday he had associated nausea and vomiting. His last bowel movement was Friday or Friday and was liquid. He denies fever. On admission, CT of the abdomen and pelvis showed partial small bowel obstruction with transition point in the terminal ileum. No evidence of pneumatosis or free air. Followup KUB showed nonobstructive bowel gas pattern. The patient's diet was advanced and the patient had a bowel movement prior to discharge. The patient will discharge home with new prescription for Tylenol No. 3 p.r.n. He was cleared by surgery and we will follow up with Dr. Campbell for colonoscopy as his last was 2 to 3 years ago. The patient understands discharge instructions and agrees to plan. Vital signs are stable. The patient is afebrile. Dictated by Rosa Isela Zelaya NP Jimy Child MD [facility] /[id number]
== END 2019-10-18 21:04 | disposition home or self-care (01) | DRG 390 ==
LOC: ER 15:30 → ERHOLD 18:29 → MED/SURG2 19:57
PROVIDERS: ADMIT Internal Medicine; ATTEND Internal Medicine
DX: K56.600 Partial intestinal obstruction, unspecified as to cause (principal); K21.9 Gastro-esophageal reflux disease without esophagitis; E66.9 Obesity, unspecified; Z68.32 Body mass index [BMI] 32.0-32.9, adult; G47.00 Insomnia, unspecified; K52.9 Noninfective gastroenteritis and colitis, unspecified
CPT/HCPCS: 36415; 74019; 74177; 80048; 80053; 81001; 82150; 83690; 83735; 85025; 99285; J0692; J2270; J2405; J7030; Q9967

== ENCOUNTER → 2019-10-26 | Day surgery (SDC) | payer OTHER ==
[~2019-10-26] MED LIST changes: +DICYCLOMINE HCL20 MG PO; +FENTANYL CITRATE/PF 100MCG/2 ML INJ ONE; +GLUCAGON FOR INJ 1 MG VIAL ONE; +HYOSCYAMINE 0.125 MG TAB ONE; +MELATONIN3 MG PO; +MIDAZOLAM HCL 2 MG/2 ML VIAL ONE; +PANTOPRAZOLE SO40 MG PO; +PROPOFOL IV EMULSION 10 MG/ML 50 ML VIAL ONE; +TYLENOL WITH C1 EACH PO
[2019-10-26 09:35] VITALS: BP 108/83
--- NOTE | 2019-10-26 10:51 | Operative Report ---
DATE OF PROCEDURE: 10/26/2019 SURGEON: Shaun Lowery MD PROCEDURE: A colonoscopy with biopsies. INDICATIONS FOR COLONOSCOPY: Abnormal CT scan, mass in the ileocecal valve. MEDICATIONS: The patient was done under MAC. Please see anesthesiologist's note. PROCEDURE IN DETAIL: With the patient in left lateral decubitus position, a flexible fiberoptic Olympus colonoscope was inserted into the rectum with ease and advanced all the way to the cecum. Mucosa overlying the cecum appeared to be within normal limits. The ileocecal valve appeared generous and multiple biopsies were obtained. It was then intubated with some difficulty as there was a short segment of the terminal ileum just proximal to the ileocecal valve was somewhat stiff and multiple biopsies were obtained. There was also a proximal dilatation of the terminal ileum. The scope was withdrawn back into the colon. It was then withdrawn slowly. Mucosa overlying the ascending, transverse, descending, and sigmoid appeared to be within normal limits. A minute submucosal nodule was noted in the proximal rectum that was biopsied. The scope was then retroflexed into the distal rectum and small internal hemorrhoids were noted, none of which was actively bleeding. The scope was then straightened out, it was subsequently withdrawn. The patient tolerated the procedure well. IMPRESSION: 1. Generous ileocecal valve, biopsied. 2. Stiff short segment of terminal ileum just proximal to the ileocecal valve, biopsied. There was some dilatation of the terminal ileum proximally. 3. Submucosal nodule proximal rectum, biopsied. 4. Internal hemorrhoids none actively bleeding. PLAN: Follow up histology. The patient will need a small bowel series. Shaun Lowery MD [facility] /[id number] cc: Lisandro Vernon III, MD
== END | disposition home or self-care (01) ==
LOC: OR 06:10
PROVIDERS: ATTEND Internal Medicine Gastroenterology
DX: R93.3 Abnormal findings on diagnostic imaging of other parts of digestive tract (principal); K63.89 Other specified diseases of intestine; K62.89 Other specified diseases of anus and rectum; K64.8 Other hemorrhoids; K21.9 Gastro-esophageal reflux disease without esophagitis; K28.9 Gastrojejunal ulcer, unspecified as acute or chronic, without hemorrhage or perforation; R11.2 Nausea with vomiting, unspecified; Z91.040 Latex allergy status; Z91.018 Allergy to other foods; Z68.29 Body mass index [BMI] 29.0-29.9, adult
CPT/HCPCS: 45380; 82378; J1610; J2250; J2704; J3010

== ENCOUNTER → 2019-10-29 | Outpatient (CLI) | payer OTHER ==
[~2019-10-29] MED LIST changes: -FENTANYL CITRATE/PF 100MCG/2 ML INJ ONE; -GLUCAGON FOR INJ 1 MG VIAL ONE; -HYOSCYAMINE 0.125 MG TAB ONE; -MIDAZOLAM HCL 2 MG/2 ML VIAL ONE; -PROPOFOL IV EMULSION 10 MG/ML 50 ML VIAL ONE
--- NOTE | 2019-10-29 14:42 | Diagnostic Imaging Report ---
FLUOROSCOPIC SMALL BOWEL SERIES DIRECTOR OF DIGITAL PLATFORMS(S): Dee Guo MD Indication: Anemia Comparison: None. Radiation Dose: Total dose: 6.8mGy Total fluoroscopy time: 0.8 minutes Procedure: Small bowel follow through exam was performed using oral barium. Preliminary image was obtained before administration of contrast and serial overhead images were obtained after administration of oral barium. Fluoroscopy was performed and spot images were obtained. DISCUSSION: PHYSICIAN CHIEF OF PATHOLOGY: The bowel gas pattern is non-obstructive. No acute bony abnormality. STOMACH: Unremarkable mucosal pattern. SMALL BOWEL: Bulb and sweep are normal. Duodenal-jejunal junction is in the normal expected position. Small bowel loops are normal in caliber and distribution. There is no evidence of fistula, mucosal changes, stricture or dilation. The transit time was within normal limits. COLON: Partially visualized proximal colon is unremarkable. IMPRESSION: Unremarkable fluoroscopic small bowel series. Signed by: Dee Guo MD on 10/29/2019 2:39 PM
== END ==
LOC: DX 08:53
PROVIDERS: ATTEND Internal Medicine Gastroenterology
DX: R93.3 Abnormal findings on diagnostic imaging of other parts of digestive tract (principal)
CPT/HCPCS: 74250